=== PATIENT | male | born 1975 | race Caucasian/White ===

== ENCOUNTER 2019-04-22 09:04 | Inpatient (IN) | payer BC ==
[2019-04-22] MEDS ORDERED: NS 0.9% 1000 ML** 1,000 ML IV ONE ×2 (09:24→10:17)
--- NOTE | 2019-04-22 09:30 | ED ---
HPI Febrile Illness - HPI Summary HPI Summary: Pt. is a 43 y.o male who presents to the ER for generalized fatigue and myalgias x 1 week. Pt. states him and his are visiting from [place] and arrived Saturday. Pt. states last week he started feeling feverish with diffuse body aches. Pt. thought he was feeling better and decided to come to the [facility] but pt. states he has been lying in bed all weak with poor appetite. Pt. denies headache, neck pain, CP, SOB, abd. pain, V/D, sore throat, ear pain, rash , tick bite. Past hx of diabetes and HTN. No known sick contacts. Sxs are mild- moderate in severity. No current modifying factors. Denies drug or ETOH use. - History of Current Complaint Chief Complaint: EDWeakness Time Seen by Provider: 04/22/19 09:12 Hx Obtained From: Patient Pain Intensity: 6 - Allergy/Home Medications Allergies/Adverse Reactions: Allergies Allergy/AdvReac Type Severity Reaction Status Date / Time No Known Allergies Allergy Verified 04/22/19 09:10 Home Medications: Home Medications Lisinopril/HCTZ 08/01.5(NF) [Zestoretic 10.5(NF)] 1 tab PO DAILY 04/22/19 [ History Confirmed 04/22/19] Pravastatin (NF) [Pravachol (NF)] 20 mg PO DAILY 04/22/19 [History Confirmed 01/06] metFORMIN* [Glucophage 1000 MG TAB *] 1,000 mg PO DAILY 04/22/19 [History Confirmed 04/22/19] PMH/Surg Hx/FS Hx/Imm Hx Previously Healthy: Yes Infectious Disease History: No Infectious Disease History: Denies: Traveled Outside the [place] in Last 30 Days - Family History Known Family History: Positive: Non-Contributory - Social History Occupation: Employed Full-time Lives: With Family Alcohol Use: Occasionally Substance Use Type: Reports: None Smoking Status (MU): Light Every Day Tobacco Smoker Review of Systems Positive: Fever, Chills Eyes: Negative ENT: Negative Negative: Dental Pain, Sore Throat, Ear Ache, Nasal Discharge Cardiovascular: Negative Negative: Palpitations, Chest Pain Respiratory: Negative Negative: Shortness Of Breath, Cough Gastrointestinal: Negative Negative: Abdominal Pain, Vomiting, Diarrhea, Nausea Genitourinary: Negative Negative: dysuria Positive: Myalgia Skin: Negative Negative: Rash Neurological: Negative Negative: Headache All Other Systems Reviewed And Are Negative: Yes Physical Exam Triage Information Reviewed: Yes Vital Signs On Initial Exam: Initial Vitals Temp Pulse Resp BP Pulse Ox 99.9 F 95 16 126/72 95 04/22/19 09:06 04/22/19 09:06 04/22/19 09:06 04/22/19 09:06 04/22/19 09:06 Vital Signs Reviewed: Yes Appearance: Positive: Well-Appearing - Pt. sitting up in bed in NAD. present. Pleasant. Skin: Positive: Warm, Dry Head/Face: Positive: Normal Head/Face Inspection Eyes: Positive: Normal, EOMI, LAYA, Conjunctiva Clear ENT: Positive: Pharynx normal, TMs normal. Negative: Pharyngeal erythema, Tonsillar swelling, Tonsillar exudate Neck: Positive: Supple, Nontender, No Lymphadenopathy. Negative: Nuchal Rigidity Respiratory/Lung Sounds: Positive: Clear to Auscultation, Breath Sounds Present. Negative: Rales, Rhonchi, Wheezes Cardiovascular: Positive: Normal, RRR Abdomen Description: Positive: Other: - Obese. Abd. is soft and nontender throughout. Musculoskeletal: Positive: Normal. Negative: Edema Left, Edema Right Neurological: Positive: Normal, CN Intact II-III Psychiatric: Positive: Affect/Mood Appropriate Diagnostics - Vital Signs Vital Signs Temp Pulse Resp BP Pulse Ox 04/22/19 09:06 99.9 F 95 16 126/72 95 - Laboratory Result Diagrams: 04/22/19 09:51 04/22/19 09:51 Lab Statement: Any lab studies that have been ordered have been reviewed, and results considered in the medical decision making process. Course/Dx - Course Course Of Treatment: Pt. presenting with vague complaints of fever and fatigue. Low grade fever in ED. No obvious signs of infection on exam. Given hx will obtain basic labs, lyme titer, and u/a for further evaluation. CBC shows mild anemia. CMP shows Na of 124, K 3.2, cl 87. U/A shows ketones, RBCs, and protein without signs of infection. Second liter of fluids ordered and CK added on. CK elevated at 1498. Pt. notes he is feeling better with fliuds. Will admit for rhabdomyolysis. Case discussed with Dr. Ruano, hospitalist, and she accepts pt. for admission. - Febrile Illness Differential Diagnoses: Bacteremia, Fever of Unknown Origin, Meningitis, Pneumonia, Pyelonephritis - Diagnoses Provider Diagnoses: Rhabdomyolysis, Hyponatremia Discharge - Sign-Out/Discharge Documenting (check all that apply): Patient Departure Patient Received Moderate/Deep Sedation with Procedure: No - Discharge Plan Condition: Stable Disposition: ADMITTED TO [facility] - Billing Disposition and Condition Condition: STABLE Disposition: Admitted to [facility] - Attestation Statements Provider Attestation: I was available for consult. This patient was seen by the RODRICK. The patient was not presented to, seen by, or examined by me. -Checo
[2019-04-22 10:04] LABS: ABS Lymphocytes 0.4 10^3/ul (1.0-4.8); ABS Monocytes 0.6 10^3/ul (0-0.8); ABS Neutrophils 4.8 10^3/ul (1.5-7.7); Eosinophil % 0.1 %; Hematocrit 36 % (42-52); Hemoglobin 12.6 g/dL (14.0-18.0); Lymphocyte % 7.6 %; Mean Corpuscular HGB Conc 35 g/dL (31-36); Mean Corpuscular Hemoglobin 30 pg (27-31); Mean Corpuscular Volume 86 fL (80-94); Mean Platelet Volume 8.4 fL (7.4-10.4); Platelet Count 193 10^3/uL (150-450); Red Blood Count 4.15 10^6 /uL (4.18-5.48); Red Cell Distribution Width 13 % (10-15); White Blood Count 5.8 10^3/uL (3.5-10.8)
[2019-04-22 10:15] LABS: Albumin 3.5 g/dL (3.2-5.2); Albumin/Globulin Ratio 0.9 (1-3); BUN/Creatinine Ratio 17.8 (8-20); Calcium 8.6 mg/dL (8.6-10.3); EGFR African American 90.4 (>60); EGFR Non-African American 74.7 (>60); Globulin 3.8 g/dL (2-4); Magnesium 2.4 mg/dL (1.9-2.7); Potassium 3.2 mmol/L (3.5-5.0); Total Bilirubin 0.7 mg/dL (0.2-1.0); Total Protein 7.3 g/dL (6.4-8.9)
[2019-04-22 10:28] LABS: Urine Appearance Cloudy; Urine Bacteria Absent (Absent); Urine Bilirubin Negative (Negative); Urine Blood 3+ (Negative); Urine Color Amber; Urine Glucose Negative (Negative); Urine Ketones 1+ (Negative); Urine Nitrite Negative (Negative); Urine Protein 2+(100 mg/dL) (Negative); Urine Red Blood Cell 2+(6-10/hpf) (Absent); Urine Specific Gravity 1.023 (1.010-1.030); Urine Squamous Epithelial Cell Present (Absent); Urine Urobilinogen Positive (Negative); Urine White Blood Cell Trace(0-5/hpf) (Absent)
[2019-04-22] MEDS ORDERED: Potassium Chlor TAB* 20 MEQ TAB.ER PO ONE (10:42)
[2019-04-22 10:54] LABS: TSH (Thyroid Stimulating Horm) 0.41 mcIU/mL (0.34-5.60)
[2019-04-22] MEDS ORDERED: Iodixanol* (CONTRAST) 320 MG/ML 100 ML SDV IV ONE (14:01)
[2019-04-22] MEDS ORDERED: cefTRIAXone(*) 1 GM in NS 0.9% 50 ML* 50 ML IVPB SCH (14:23)
[2019-04-22] MEDS ORDERED: Enoxaparin(*) 40 MG/0.4 ML SYR SUBCUT SCH (15:00)
[2019-04-22] MEDS ORDERED: Acetaminophen TAB* 325 MG PO PRN (15:17)
[2019-04-22] MEDS ORDERED: Dextrose 50% Syringe 50 ML* 25 GM/50 ML SYRINGE IV PUSH PRN (15:18)
[2019-04-22] MEDS: Azithromycin 500 mg/250 ml NS 500 MG/250 ML BAG IVPB SCH (16:50)
[2019-04-22] MEDS: NS 0.9% 1000 ML** 1,000 ML IV SCH (16:50)
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
[2019-04-22 17:07] LABS: % Iron Saturation 11 % (15-55); Iron 25 ug/dL (50-212); Total Iron Binding Capacity 238 mcg/dL (250-450); Transferrin 170 mg/dL (203-362)
[2019-04-22 17:31] LABS: Ferritin > 1500.0 ng/mL (24-336)
[2019-04-22] MEDS: Insulin LISPRO* 1 UNITS UNIT SUBCUT SCH (18:24)
--- NOTE | 2019-04-22 19:49 | PN ---
Hospitalist Progress Note Date of Service: 04/22/19 Clinical Update Legionella antigen is positive Discussed with patient diagnosis. 2 weeks ago he was in the basement of his condo where they are removing "old hot tubs and water tanks" and this is likely his exposure. I did report [facility], [place] the name of his condo Tx is Azithromycin, will d/c CTX. If well possible d/c tomorrow pending clinical status.
[2019-04-22 20:35] LABS: Hepatitis B Surface Antigen Negative (Negative)
[2019-04-22 20:44] LABS: HIV 4th Generation Negative (Negative)
[2019-04-22 20:53] LABS: Hepatitis C Antibody Negative (Negative)
[2019-04-23] MEDS: NS 0.9% 1000 ML** 1,000 ML IV SCH ×2 (00:31→08:07)
[2019-04-23 06:41] LABS: ABS Lymphocytes 0.5 10^3/ul (1.0-4.8); ABS Monocytes 0.5 10^3/ul (0-0.8); ABS Neutrophils 2.3 10^3/ul (1.5-7.7); Eosinophil % 0.1 %; Hematocrit 37 % (42-52); Hemoglobin 12.6 g/dL (14.0-18.0); Lymphocyte % 15.2 %; Mean Corpuscular HGB Conc 34 g/dL (31-36); Mean Corpuscular Hemoglobin 30 pg (27-31); Mean Corpuscular Volume 88 fL (80-94); Mean Platelet Volume 8.9 fL (7.4-10.4); Nucleated Red Blood Cells % 0.2; Platelet Count 183 10^3/uL (150-450); Red Blood Count 4.16 10^6 /uL (4.18-5.48); Red Cell Distribution Width 14 % (10-15); White Blood Count 3.3 10^3/uL (3.5-10.8)
[2019-04-23 06:54] LABS: BUN/Creatinine Ratio 15.5 (8-20); EGFR African American 119.6 (>60); EGFR Non-African American 98.8 (>60); Potassium 3.5 mmol/L (3.5-5.0)
[2019-04-23] MEDS: Insulin LISPRO* 1 UNITS UNIT SUBCUT SCH ×2 (08:45→13:02)
[2019-04-23] MEDS ORDERED: Lisinopril TAB* 5 MG PO SCH (09:00)
[2019-04-23 09:44] LABS: Albumin 3.3 g/dL (3.2-5.2); Albumin/Globulin Ratio 0.9 (1-3); Globulin 3.5 g/dL (2-4); Indirect Bilirubin 0.4 mg/dL (0.3-1.0); Total Bilirubin 0.5 mg/dL (0.2-1.0); Total Protein 6.8 g/dL (6.4-8.9)
[2019-04-23] MEDS: Azithromycin 500 mg/250 ml NS 500 MG/250 ML BAG IVPB SCH (14:06)
--- NOTE | 2019-04-23 14:39 | DS ---
CC: Dr. Dario Greene, [facility], * DISCHARGE SUMMARY: DATE OF ADMISSION: 04/22/19 DATE OF DISCHARGE: 04/23/19 PRIMARY CARE PHYSICIAN: Dr. Dario Greene. PRINCIPAL DISCHARGE DIAGNOSES: 1. Legionella pneumonia. 2. Rhabdomyolysis. 3. Hematuria. 4. Elevated transaminases. SECONDARY DISCHARGE DIAGNOSES: 1. Hypertension. 2. Diabetes. 3. Hyperlipidemia. MEDICATIONS AT DISCHARGE: 1. Metformin 1000 mg daily. 2. Pravastatin 20 mg daily. 3. Lisinopril/HCTZ 10/12.5 daily. 4. Azithromycin 500 mg daily for 5 more days. PHYSICAL EXAM AT DISCHARGE: Temperature 97.7, heart rate 68, respiratory rate 20, pulse ox 99% on room air, blood pressure 123/62. General: Alert, well- appearing young man, in no distress. He is breathing comfortably and able to speak in full sentences. He was able to walk around the unit, in no distress, and his pulse ox remained at 98% on room air. HEENT: Pupils 4 mm bilaterally and reactive to light. Oral mucosa is moist. Neck: No JVP. No adenopathy. Chest: He is in a regular rate and rhythm with no murmurs. His lungs are clear bilaterally. Abdomen: Obese, soft, nontender, nondistended. No guarding or rebound. Extremities: No edema, rashes, or ulcers. Neurologic: He is alert and oriented x3. Strength is 5/5 in all extremities. PERTINENT LABS: Legionella urine antigen was positive on 04/22/19. CK went from 1498 on 04/22/19 to 935 on 04/23/19. AST went from 98 to 134 and 90 to 118. IMAGING: Left lower lobe density most consistent with an infiltrate, recommend followup chest x-ray for resolution to exclude an underlying mass . Serology HIV 1 and 2 fourth generation was negative. [place] screen was negative. Acute hepatitis panel was negative. Rheumatoid factor was less than 10. HOSPITAL COURSE BY PROBLEM: 1. Legionella pneumonia. Mr. Ya was initially admitted for fatigue and was noted to have hyponatremia, elevated transaminases, and elevated CK, suggesting a viral syndrome or atypical pneumonia, and legionella urine antigen returned positive on day 1 of hospital admission. This finding was discussed with the patient and it was discovered that he had recently been in the basement of his condo where they were removing old hot tubs and water tank, which was most likely his exposure. This finding was reported to [facility] and he was continued on azithromycin with ceftriaxone being discontinued. He required no oxygen and felt very well and was requesting discharge on 04/23/19. 2. Rhabdomyolysis. His initial CK was 1400. His urinalysis was not completely consistent with rhabdomyolysis as he had positive blood and also red blood cells, but his CK was trending down. He is tolerating an excellent oral diet and is able to stay hydrated upon discharge. 3. Hematuria. I have explained the finding of hematuria to him and that it is not totally consistent with rhabdomyolysis and that he needs a repeat urinalysis next week to ensure resolution. 4. Elevated transaminases. This is likely in keeping with the diagnosis of legionella. I discussed the finding of elevated transaminases and that this needs close followup to ensure resolution. He understands that they are rising at the time of discharge and should he develop any new symptoms especially gastrointestinal symptoms, he is to return to the ED immediately. 5. Other chronic medical conditions. He was continued on his home statin, antihypertensive, and metformin. FOLLOWUP NEEDED: I have given Mr. Ya a script to has LFTs, urinalysis, and CK checked on Saturday after the holiday weekend. He is going to call tomorrow to make a followup appointment with his family doctor Dr. Greene at [facility]. I have also explained to him that he needs a followup chest x-ray in 4 to 6 weeks to ensure resolution of the infiltrate and be sure there is no underlying process. STUDIES PENDING AT THE TIME OF DISCHARGE: An ANCA panel, CMV, Lyme PCR, mycoplasma, CAITLIN, and EBV are pending at the time of discharge. These should be requested at his followup appointment. DISPOSITION: Mr. Ya is discharged to home in good condition. [id number]/[facility] #: [id number] [facility]
[2019-04-23 16:01] VITALS: BP 124/62
[2019-04-25 00:47] LABS: B garinii/B afzelii PCR Negative (Negative); B mayonii PCR Negative (Negative)
[2019-04-25 12:17] LABS: Cytomegalovirus IgG Antibody Positive (Negative)
[2019-04-26 16:38] LABS: Mycoplasma pneumoniae IgG Ab Positive (Negative); Mycoplasma pneumoniae IgM Ab Negative (Negative)
== END 2019-04-23 16:15 | disposition home or self-care (01) | DRG 137 ==
LOC: ED 09:04 → MED 14:24
PROVIDERS: ADMIT Internal Medicine; ATTEND Internal Medicine
DX: A48.1 Legionnaires' disease (principal); M62.82 Rhabdomyolysis; E87.1 Hypo-osmolality and hyponatremia; R31.9 Hematuria, unspecified; R74.0 Nonspecific elevation of levels of transaminase and lactic acid dehydrogenase [LDH]; I10 Essential (primary) hypertension; E11.9 Type 2 diabetes mellitus without complications; E78.5 Hyperlipidemia, unspecified; E87.6 Hypokalemia; D64.9 Anemia, unspecified; E66.9 Obesity, unspecified; Z79.84 Long term (current) use of oral hypoglycemic drugs; Z79.899 Other long term (current) drug therapy; Z87.891 Personal history of nicotine dependence; Z68.33 Body mass index [BMI] 33.0-33.9, adult
CPT/HCPCS: 36415; 71046; 80048; 80053; 80074; 80076; 81003; 81015; 82550; 82728; 83516; 83540; 83550; 83735; 84443; 85025; 86038; 86141; 86308; 86431; 86644; 86645; 86663; 86738; 87040; 87086; 87389; 87476; 87798; 87899; 99284; A9270-GY; J0456; J0696; J1650